=== PATIENT | female | born 1940 | race African-American/Black ===

== ENCOUNTER 2017-12-29 17:04 | Emergency (ER) | payer OTHER ==
[~2017-12-29] VITALS: Ht 165.1 cm; Wt 63.5 kg
--- NOTE | 2017-12-29 17:52 | RAD ---
EXAM: Right third finger, 3 views. HISTORY: Trigger finger. COMPARISON: None. FINDINGS: 3 views of the right long finger are obtained. There is a chronic fragmented osteophyte along the dorsal aspect of the third distal interphalangeal joint. This is superimposed on third distal interphalangeal joint spurring. There is hyperflexion of the third phalanx on the frontal and oblique projections. IMPRESSION: 1. Hyperflexion of the third distal and proximal interphalangeal joints, consistent with a reported trigger finger. 2. 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 Electronically signed by: Sophie Tran MD (12/29/2017 5:48 PM) [facility]
--- NOTE | 2017-12-29 18:00 | ED.ADGEN ---
Past History Past Medical History: Diabetes, Hypertension Past Surgical History: Other Alcohol Use: None Drug Use: None Adult General Chief Complaint Chief Complaint ".. I got this trigger finger.. It has dislocated before .. last time I was pulling weeds... tonight I was just doing some holiday decorations.. .. Before it always went back.. this time it is really hurting and swollen.. " HPI HPI Patient is a 77 year old female who presents with above hx and complaints trigger finger dislocation of third distal interphalangeal joint. Finger is swollen and tender. Pt. has had this finding previously. Pt. is right hand dominate. Pt. does have hx of DM. Pt. has finding of some arthritic changes in other joints. Patient does follow-up primary care. Patient rates her pain 10 out of 10. Review of Systems Review of Systems Constitutional: Denies fever or chills [] Eyes: Denies change in visual acuity, redness, or eye pain [] HENT: Denies nasal congestion or sore throat [] Respiratory: Denies cough or shortness of breath [] Cardiovascular: No additional information not addressed in HPI [] GI: Denies abdominal pain, nausea, vomiting, bloody stools or diarrhea [] : Denies dysuria or hematuria [] Musculoskeletal: Denies back pain or joint pain []complaints of third finger trigger finger right hand Integument: Denies rash or skin lesions [] Neurologic: Denies headache, focal weakness or sensory changes [] Endocrine: Denies polyuria or polydipsia [] All other systems were reviewed and found to be within normal limits, except as documented in this note. Family History Family History Diabetes Current Medications Current Medications Current Medications Medications (Trade) Dose Ordered Sig/Vilma Start Time Stop Time Status Last Admin Dose Admin Bupivacaine HCl (Sensorcaine Mpf 0.5%) 10 ml 1X ONCE 12/29/17 19:00 12/29/17 19:01 DC Lidocaine HCl 20 ml 1X ONCE 12/29/17 19:00 12/29/17 19:02 DC Allergies Allergies Allergies Coded Allergies Type Severity Reaction Last Updated Verified lisinopril Allergy Intermediate 12/29/17 Yes metformin Allergy Intermediate 12/29/17 Yes simvastatin Allergy Intermediate 12/29/17 Yes valsartan Allergy Intermediate 12/29/17 Yes Physical Exam Physical Exam Constitutional:in acute distress, non-toxic appearance. [] HENT: Normocephalic, atraumatic, bilateral external ears normal, oropharynx moist, no oral exudates, nose normal. [] Eyes: PERRLA, EOMI, conjunctiva normal, no discharge. [] Neck: Normal range of motion, no tenderness, supple, no stridor. [] Cardiovascular:Heart rate regular rhythm, no murmur [] Lungs & Thorax: Bilateral breath sounds clear to auscultation [] Abdomen: Bowel sounds normal, soft, no tenderness, no masses, no pulsatile masses. [] Skin: Warm, dry, no erythema, no rash. [] Back: No tenderness, no CVA tenderness. [] Extremities: No tenderness, no cyanosis, no clubbing, ROM intact, no edema. [] Except findings in right third finger as per history of present illness Neurologic: Alert and oriented X 3, normal motor function, normal sensory function, no focal deficits noted. [] Psychologic: Affect anxious, judgement normal, mood normal. [] Current Patient Data Vital Signs Vital Signs Date Time Temp Pulse Resp B/P (MAP) Pulse Ox O2 Delivery O2 Flow Rate FiO2 12/29/17 19:30 84 20 156/84 (108) 97 Room Air 12/29/17 17:31 97.4 EKG EKG [] Radiology/Procedures Radiology/Procedures My interpretation of hand x-ray shows hyperflexion of the third distal interphalangeal joint consistent with trigger finger. Does have a middle third distal interphalangeal joint osteoarthritis with a fragment osteophyte. Post reduction film shows adequate repositioning of third finger dislocation.[] Course & Med Decision Making Course & Med Decision Making Pertinent Labs and Imaging studies reviewed. (See chart for details) Procedure note- digital block to third finger with lidocaine. Gentle traction and reduction of third finger. Erick taped to the fourth finger.. OCL splint applied. Patient to keep hand elevated. No jewelry on this hand. Follow-up with primary and orthopedics. May need eventual tendon release. Return if any concerns. Patient did have flexion and extension after reduction. [] Final Impression Final Impression 1. Trigger finger third finger right hand-[] Dragon Disclaimer Dragon Disclaimer This electronic medical record was generated, in whole or in part, using a voice recognition dictation system. BRENDA IVEY MD Dec 29, 2017 18:00
[2017-12-29] MEDS ORDERED: BUPIVACAINE MPF 0.5% 10 ML VIAL. IJ ONE ×2 (19:00)
[2017-12-29] MEDS ORDERED: LIDOCAINE 2% 20 ML VIAL. IJ ONE (19:00)
[2017-12-29] MEDS: LIDOCAINE 2% 20 ML VIAL. IJ ONE (19:00)
--- NOTE | 2017-12-29 19:28 | RAD ---
EXAM: Right hand, 3 views. HISTORY: Closed reduction. COMPARISON: 12/29/2017 FINDINGS: 3 views of the right hand are obtained. There is no fracture, dislocation or subluxation. There is improved alignment of the third phalanx. There is a chronic fragmented osteophyte along the dorsal aspect of the second distal interphalangeal joint. There is soft tissue prominence overlying the metacarpal heads. IMPRESSION: No acute osseous finding. There is anatomic alignment of the third phalanx. Electronically signed by: Sophie Tran MD (12/29/2017 7:25 PM) [facility]
[2017-12-29 19:30] VITALS: BP 156/84
== END 2017-12-29 19:35 | disposition home or self-care (01) ==
LOC: ER 17:04
DX: M65.331 Trigger finger, right middle finger (principal); S63.292A Dislocation of distal interphalangeal joint of right middle finger, initial encounter; E11.9 Type 2 diabetes mellitus without complications; I10 Essential (primary) hypertension; Z88.8 Allergy status to other drugs, medicaments and biological substances; X50.9XXA Other and unspecified overexertion or strenuous movements or postures, initial encounter; Y93.89 Activity, other specified; Y92.89 Other specified places as the place of occurrence of the external cause; Y99.8 Other external cause status
CPT/HCPCS: 26770; 73130; 73140; 99284

== ENCOUNTER → 2020-01-13 | Outpatient (CLI) | payer MEDICARE ==
[2020-01-13 10:43] LABS: ALBUMIN 4.1 g/dL (3.4-5.0); CREATININE 1.2 mg/dL (0.6-1.0); GFR 52.3; MAGNESIUM 2.4 mg/dL (1.8-2.4); PHOSPHORUS 3.8 mg/dL (2.6-4.7); POTASSIUM 4.3 mmol/L (3.5-5.1); URIC ACID 4.8 mg/dL (2.6-6.0)
[2020-01-13 11:06] LABS: BACTERIA,URINE MANY /HPF (0-FEW); BILIRUBIN,URINE NEG (NEG); CLARITY,URINE CLOUDY; COLOR,URINE YELLOW; GLUCOSE,URINE NEG (NEG); NITRITE,URINE NEG (NEG); SQUAMOUS EPITHELIAL CELL,UR FEW /LPF; UROBILINOGEN,URINE 0.2 mg/dL (0.2 mg/dL); WBC,URINE >40 /HPF (0-4)
[2020-01-13 22:08] LABS: CALCIUM PTH 9.7 mg/dL (8.7-10.3); CREATININE PTH 1.23 mg/dL (0.57-1.00); PTH INTACT 41 pg/mL (15-65)
== END ==
LOC: LAB 09:02
PROVIDERS: ATTEND Internal Medicine Nephrology
DX: N18.30 Chronic kidney disease, stage 3 unspecified (principal); R82.79 Other abnormal findings on microbiological examination of urine
CPT/HCPCS: 36415; 80069; 81001; 83735; 83970; 84550; 87086

== ENCOUNTER → 2020-07-15 | Outpatient (CLI) | payer MEDICARE ==
[2020-07-15 08:56] LABS: ALBUMIN 3.8 g/dL (3.4-5.0); CALCIUM 8.8 mg/dL (8.5-10.1); CREATININE 1.2 mg/dL (0.6-1.0); GFR 52.2; PHOSPHORUS 3.3 mg/dL (2.6-4.7); POTASSIUM 4.4 mmol/L (3.5-5.1)
[2020-07-15 12:55] LABS: BACTERIA,URINE MANY /HPF (0-FEW); BILIRUBIN,URINE NEG (NEG); CLARITY,URINE HAZY; COLOR,URINE YELLOW; GLUCOSE,URINE NEG (NEG); NITRITE,URINE NEG (NEG); RBC,URINE OCC /HPF (0-2); SQUAMOUS EPITHELIAL CELL,UR FEW /LPF; UROBILINOGEN,URINE 0.2 mg/dL (0.2 mg/dL)
== END ==
LOC: LAB 08:05
PROVIDERS: ATTEND Internal Medicine Nephrology
DX: I12.9 Hypertensive chronic kidney disease with stage 1 through stage 4 chronic kidney disease, or unspecified chronic kidney disease (principal); N18.31 Chronic kidney disease, stage 3a; E11.22 Type 2 diabetes mellitus with diabetic chronic kidney disease; Z68.22 Body mass index [BMI] 22.0-22.9, adult
CPT/HCPCS: 36415; 80069; 81001; 87086

== ENCOUNTER → 2021-03-22 | Outpatient (CLI) | payer MEDICARE ==
[2021-03-22 09:48] LABS: ALBUMIN 3.7 g/dL (3.4-5.0); CALCIUM 8.8 mg/dL (8.5-10.1); CREATININE 1.2 mg/dL (0.6-1.0); PHOSPHORUS 3.9 mg/dL (2.6-4.7); POTASSIUM 4.1 mmol/L (3.5-5.1)
== END ==
LOC: LAB 09:05
PROVIDERS: ATTEND Internal Medicine Nephrology
DX: I12.9 Hypertensive chronic kidney disease with stage 1 through stage 4 chronic kidney disease, or unspecified chronic kidney disease (principal); E11.22 Type 2 diabetes mellitus with diabetic chronic kidney disease; N18.31 Chronic kidney disease, stage 3a; Z68.24 Body mass index [BMI] 24.0-24.9, adult
CPT/HCPCS: 36415; 80069